=== PATIENT | female | born 1995 | race Caucasian/White ===

== ENCOUNTER 2018-01-03 13:12 | Emergency (ER) | payer OTHER ==
[~2018-01-03] VITALS: Ht 172.7 cm; Wt 49.9 kg
[2018-01-03 13:22] VITALS: Ht 172.7 cm; Wt 49.9 kg
[2018-01-03 13:59] LABS: BASOPHIL % 0.9 % (0-2); PLATELET COUNT 239 x10^3mcL (130-400); RED CELL DISTRIBUTION WIDTH 12.3 % (11.5-14.5)
[2018-01-03 14:32] LABS: ALBUMIN 4.5 g/dL (3.4-5.0); ALKALINE PHOSPHATASE 62 U/L (46-116); ALT/SGPT 21 U/L (14-59); AST/SGOT 15 U/L (15-37); BILIRUBIN TOTAL 0.8 mg/dL (0.20-1.00); CALCIUM 8.7 mg/dL (8.5-10.1); CARBON DIOXIDE 28.5 mmol/L (21-32); CHLORIDE SERUM 104 mmol/L (98-107); CREATININE SERUM 0.9 mg/dL (0.6-1.0); GFR1 > 60 mL/min; GLUCOSE SERUM 63 mg/dL (74-106); LIPASE 178 IU/L (73-393); POTASSIUM SERUM 3.4 mmol/L (3.5-5.1); SODIUM SERUM 139 mmol/L (136-145); TOTAL PROTEIN, SERUM 7.9 g/dL (6.4-8.2)
[2018-01-03 14:57] VITALS: BP 123/79
== END 2018-01-03 14:57 | disposition home or self-care (01) ==
LOC: ED 13:12
PROVIDERS: Emergency Medicine
DX: E87.6 Hypokalemia (principal); M79.1 Myalgia; R63.4 Abnormal weight loss; D69.2 Other nonthrombocytopenic purpura; Z88.0 Allergy status to penicillin; Z88.5 Allergy status to narcotic agent; Z88.6 Allergy status to analgesic agent
CPT/HCPCS: 36415

== ENCOUNTER 2019-01-04 18:49 | Emergency (ER) | payer OTHER ==
[~2019-01-04] VITALS: Ht 170.2 cm; Wt 51.3 kg
[2019-01-04 19:06] VITALS: Ht 170.2 cm; Wt 51.3 kg
[2019-01-04 20:51] VITALS: BP 126/61
== END 2019-01-04 20:51 | disposition home or self-care (01) ==
LOC: ED 18:49
DX: S01.01XA Laceration without foreign body of scalp, initial encounter (principal); Z88.0 Allergy status to penicillin; Z88.5 Allergy status to narcotic agent; W22.8XXA Striking against or struck by other objects, initial encounter; Y93.89 Activity, other specified; Y92.89 Other specified places as the place of occurrence of the external cause; Y99.8 Other external cause status
CPT/HCPCS: 90715

== ENCOUNTER 2019-01-10 11:28 | Emergency (ER) | payer OTHER ==
[~2019-01-10] VITALS: Ht 170.2 cm; Wt 50.3 kg
[2019-01-10 11:57] VITALS: BP 105/78; Ht 170.2 cm; Wt 50.3 kg
== END 2019-01-10 13:22 | disposition home or self-care (01) ==
LOC: ED 11:28
DX: S01.01XD Laceration without foreign body of scalp, subsequent encounter (principal); Z88.0 Allergy status to penicillin; Z88.5 Allergy status to narcotic agent; W22.8XXD Striking against or struck by other objects, subsequent encounter

== ENCOUNTER 2020-06-21 18:58 | Emergency (ER) | payer OTHER ==
[~2020-06-21] VITALS: Ht 170.2 cm; Wt 52.6 kg
[2020-06-21 19:08] VITALS: Ht 170.2 cm; Wt 52.6 kg
[2020-06-21 21:54] VITALS: BP 105/66
== END 2020-06-21 22:47 | disposition home or self-care (01) ==
LOC: ED 18:58
DX: S62.001A Unspecified fracture of navicular [scaphoid] bone of right wrist, initial encounter for closed fracture (principal); Z88.0 Allergy status to penicillin; Z88.5 Allergy status to narcotic agent; V49.49XA Driver injured in collision with other motor vehicles in traffic accident, initial encounter; Y93.89 Activity, other specified; Y92.89 Other specified places as the place of occurrence of the external cause; Y99.8 Other external cause status
CPT/HCPCS: J1885